=== PATIENT | female | born 1995 | race Caucasian/White ===

== ENCOUNTER 2016-07-29 16:03 | Inpatient (IN) | payer BC ==
--- NOTE | ~2016-07-29 | PA ---
Unit #: [id number] #: [id number] Patient: KIM TOTH [id number] [place] [address] [id number] I MR#: [id number] NAME: KIM TOTH ROOM: P254 Age: 20 Sex: F Admission Date: 07/29/2016 : 1995 Date of Assessment: Attending Physician: Torres Irvin M.D. Admitting Physician: Torres Irvin M.D. Primary Care Physician: Shayy Mueller A.P.R.N. PSYCHIATRIC ASSESSMENT INFORMANTS The patient reliability, fair; chart reliability, good. CHIEF COMPLAINT Suicide attempt by taking an overdose. HISTORY OF PRESENT ILLNESS Ms. Kim Toth is a 20-year-old female, presented at [facility] after she took overdose of pills. The patient wrote a suicide note addressed to her parents as well as to her boyfriend. The patient reported lot of stress from relationship and also from work. The patient works at [employer]. Has a good support system, lives with her parent. Denied any use of drugs or alcohol. The patient reported history of suicide attempt earlier at age 15. Reported suffering from depression since age 12 or 13, but never received any treatment. The patient reported recently started on Prozac, but not much improvement with medication. The patient needed inpatient admission at this time for psychiatric stabilization. PAST PSYCHIATRIC HISTORY Remarkable for history of previous treatment, outpatient; history of previous suicide attempt at age 15 by taking an overdose, but did not require any inpatient treatment. FAMILY HISTORY AND SOCIAL HISTORY Family history is remarkable for history of depression in father, who has been suffering from depression. No history of abuse. No history of any substance abuse. MEDICAL HISTORY Unremarkable for any chronic medical illness. MEDICATION HISTORY Prozac 20 mg daily. ALLERGIES No known drug allergies. SUBSTANCE ABUSE HISTORY None. REVIEW OF SYSTEMS HEENT: Eyes, clear. Ears, nose, mouth, and throat; clear. CARDIOVASCULAR: Unremarkable. Unit #: [id number] #: [id number] Patient: KIM TOTH RESPIRATORY: Unremarkable. GI: Unremarkable. : Unremarkable. SKIN: Unremarkable. LYMPH NODE: Unremarkable. NEUROLOGIC: Unremarkable. ENDOCRINE: Unremarkable. HEMATOLOGIC: Unremarkable. ALLERGIC/IMMUNOLOGIC: Unremarkable. MUSCULOSKELETAL: Muscle strength and tone, no atrophy or abnormal movement. Gait normal. MENTAL STATUS EXAMINATION CONSTITUTIONAL: Measurement of vital signs; temperature 98.5, pulse 94, respirations 20, blood pressure 121/79, height 5 feet 8 inches, weight 140 pounds. GENERAL APPEARANCE: The patient dressed casually. The patient did not show any facial deformity. MUSCULOSKELETAL: Please see above. PSYCHIATRIC EXAMINATION Description of speech; regular rate, normal volume, normal articulation. Description of thought process, goal directed. Description of association, intact. Description of abnormal psychotic thinking; the patient denied any hallucination, delusions, or mood lability. Description of the patient's judgment, concerning everyday activity, poor; social situation, poor. Concerning psychiatric condition, poor. Complete mental status examination; oriented in time, place, and person. Recent and remote memory, fair. Attention span and concentration, fair. Language; able to name object, repeat phrases. Fund of knowledge, aware of current event and past history. Vocabulary, intact. Mood and affect; sad, dysphoric. Insight and judgment, fair to poor. ASSETS AND LIABILITIES Assets; the patient is articulate and able to take care of her ADL. Liability; history of depression, anxiety. ADMITTING DIAGNOSES Psychiatric: Major depressive disorder, recurrent, severe, F33.2; anxiety disorder, not otherwise specified, F40.01. ASSESSMENT AND PLAN 1. Advised inpatient admission at this time. Provide safe, supportive, and structured environment. 2. Ordered labs; CBC, CMP, UA, UDS. If all the labs are done at the [facility], we will not repeat. Also, check for test. 3. Precaution for self-harm. 4. The patient to attend all the program in group therapy, individual therapy, medication management, family therapy. Plan to consider Vistaril 25 mg b.i.d. for anxiety, trazodone 50 mg at bedtime for sleep, and Celexa 20 mg daily for depression. The patient to attend all the programing. If needed, consider further adjustment of medication. DISCHARGE PLAN Plan to stabilize the patient and consider followup in outpatient program. ESTIMATED LENGTH OF STAY Unit #: [id number] #: [id number] Patient: KIM TOTH 5 days. Dictated by... Torres Irvin M.D. ARTHUR/edin TD: 07/30/2016 17:27 JOB #: [id number] PSYCHIATRIC ASSESSMENT Page 1 of 1 X Torres Irvin MD PSYCHIATRIC ASSESSMENT
--- NOTE | ~2016-07-29 | PN ---
Unit #: [id number] #: [id number] Patient: KIM RICK [id number] [facility] [address] [place] [address] [id number] I MR#: [id number] NAME: KIM RICK ROOM: P254 Age: Sex: F Admission Date: 07/29/2016 : 1995 Attending Physician: Torres Irvin M.D. Admitting Physician: Torres Irvin M.D. Primary Care Physician: Shayy LOREDO PROGRESS NOTES DATE 07/31/2016 DISCUSSION Kelsey Rick is a 20-year-old female seen on 07/31/2016. Patient interviewed, chart reviewed, obtained information from nursing staff. Vital signs stable at 98.6, 76, 16, 133/83. The patient withdrawn, isolative, flat, sad dysphoric mood. Patient still is tearful, sad, dysphoric. REVIEW OF SYSTEMS Complete review of systems unremarkable. MENTAL STATUS EXAMINATION General appearance, the patient dressed casually. Attention span and concentration fair. Oriented to place and person. Mood and affect, sad, dysphoric. Speech monotone. Thought process is concrete. Patient denied any thoughts of harming self or others but still having passive SI, withdrawn, isolative. Recent and remote memory poor. Insight and judgement poor. DIAGNOSES Major depressive disorder, recurrent. ASSESSMENT/PLAN Advise to continue with current medication and therapeutic protocol. If needed consider further adjustment of medication. Dictated by... Elliott Almonte/eve TD: 08/01/2016 14:36 JOB #: [id number] Unit #: [id number] #: [id number] Patient: KIM RICK PROGRESS NOTES Page 1 of 1 X Torres Irvin MD X PROGRESS NOTE
--- NOTE | ~2016-07-29 | DS ---
Unit #: [id number] #: [id number] Patient: KIM TOTH [id number] [facility] [address] [place] [address] [id number] I MR#: [id number] NAME: KIM TOTH ROOM: [facility] Age: 20 Sex: F Admission Date: 07/29/2016 : 1995 Discharge Date: 08/01/2016 Attending Physician: Torres Irvin M.D. Primary Care Physician: Shayy Bolanos DISCHARGE SUMMARY REASON FOR ADMISSION Depression. DIAGNOSTIC STUDIES Unremarkable. HOSPITAL COURSE Patient was admitted to the inpatient unit on July 29 and discharged on August 01. The patient was transferred from [facility]. She was admitted with intentional overdose with a suicide attempt. The patient participated in programming and obtained safe behavior. She showed no side effect from medication. The patient was discharged with plan to follow up in outpatient program. DISCHARGE MEDICATIONS 1. Vistaril 25 mg twice daily for anxiety. 2. Desyrel 100 mg bedtime for sleep p.r.n. 3. Remeron 15 mg at bedtime for depression. DISCHARGE DIAGNOSES Psychiatric: 1. Major depressive disorder recurrent severe F33.2 2. Anxiety disorder NOS Secondary diagnosis Deferred. Medical diagnosis: None. DISCHARGE PLAN Patient to follow up in outpatient clinic. social. On discharge patient is pleasant and cooperative. Denied any psychotic symptoms or . Prognosis guarded. Diet and activity as tolerated. Dictated by... Elliott Almonte/anne TD: 08/03/2016 08:02 JOB #: [id number] Unit #: [id number] #: [id number] Patient: KIM TOTH DISCHARGE SUMMARY Page 1 of 1 X Torres Irvin MD X DISCHARGE SUMMARY
--- NOTE | ~2016-07-29 | HP ---
Unit #: [id number] #: [id number] Patient: KIM TOTH [id number] [place] [address] [id number] MR#: [id number] NAME: KIM TOTH ROOM: P254 Age: 20 Sex: F Admission Date: 07/29/2016 : 1995 Attending Physician: Torres Irvin M.D. Admitting Physician: Torres Irvin M.D. Primary Care Physician: Shayy Bolanos HISTORY AND PHYSICAL HISTORY OF PRESENT ILLNESS The patient is a 20 year old female admitted to [address] [place] [address] on 07/29/2016 for suicidal ideation. PAST MEDICAL HISTORY Patient denies. PAST SURGICAL HISTORY 1. Oral surgery. 2. Tonsils and adenoids. ALLERGIES Penicillin and Suprax. SOCIAL HISTORY Patient works at [employer]. She lives with her parents. She denies alcohol, tobacco or drug use. She is currently a college student. FAMILY HISTORY Noncontributory. REVIEW OF SYSTEMS CONSTITUTIONAL: No fever or chills. HEENT: Denies any sore throat, ear pain or runny nose. CARDIOVASCULAR: Denies chest pain, irregular heart rhythm or palpitations. CHEST: Denies shortness of breath or cough. No hemoptysis. GASTROINTESTINAL: Denies nausea, vomiting, diarrhea or chronic constipation. ENDOCRINE: Denies history of increased thirst or urination. No recent significant weight loss or gain. GENITOURINARY: Denies dysuria, frequency, or hematuria. SKIN: Denies any rashes. HEMATOLOGIC: Denies history of increased bleeding or bruising. MUSCULOSKELETAL: Denies any hot, swollen joints. No generalized muscle pain. NEUROLOGIC: Denies problems with vision or speech. No frequent, severe headaches. No numbness, tingling or weakness in any extremities. Denies loss of bladder or bowel control. CURRENT MEDICATIONS 1. Prozac. 2. Ambien. 3. [place]. Unit #: [id number] #: [id number] Patient: KIM TOTH 4. Promethazine. PHYSICAL EXAMINATION GENERAL: She is awake, alert, oriented, in no acute distress. VITAL SIGNS: Temperature 98.3, heart rate 92, respirations 16, blood pressure 132/100. HEIGHT: 5 feet 8. WEIGHT: 140 pounds. SKIN: Warm and dry without rash or lesion. HEENT: Normocephalic. TMs not viewed. Oral and nasal passages clear. Conjunctivae clear. PERRLA. EOMs intact. NECK: Supple without lymphadenopathy or thyromegaly. HEART: Regular rate and rhythm without murmur. LUNGS: Clear. ABDOMEN: Soft, nontender. : Not done. EXTREMITIES: No evidence of cyanosis, clubbing or edema. Moves all without focal deficit. NEUROLOGICAL: Grossly within normal limits. Cranial Nerves: II: Visual nix are intact. III, IV AND : Extraocular movements are intact. Pupils are equal, round and reactive to light. V: Facial sensation is grossly normal. VII: Facial movements and expression are normal. VIII: Auditory acuity grossly intact. IX, X: Uvula is midline. Phonation is normal. XI: Patient shrugs shoulders and turns head normally. XII: Tongue protrudes in the midline. Sensory and Motor Function: Sensory and motor sensation is grossly normal. Motor: moves all extremities well. Coordination: Gait is normal. Deep Tendon Reflexes: Intact. IMPRESSION Psychiatric admission. RECOMMENDATIONS PSYCHIATRIC: Per psychiatrist. MEDICAL: No contraindications to participate in facility's activities. MEDICAL PROGNOSIS Good. MEDICAL CONDITION Stable. Dictated by... Vivek Cronin/israel TD: 07/30/2016 16:38 JOB #: [id number] Unit #: [id number] #: [id number] Patient: KIM TOTH HISTORY AND PHYSICAL Page 1 of 1 X TAMMY TURNER APRN HISTORY AND PHYSICAL
--- NOTE | ~2016-07-29 | DS ---
Unit #: [id number] #: [id number] Patient: KIM TOTH [id number] [facility] [address] [place] [address] [id number] I MR#: [id number] NAME: KIM TOTH ROOM: [facility] Age: 20 Sex: F Admission Date: 07/29/2016 : 1995 Discharge Date: 08/01/2016 Attending Physician: Torres Irvin M.D. Primary Care Physician: Shayy Bolanos DISCHARGE SUMMARY REASON FOR ADMISSION Depression. DIAGNOSTIC STUDIES LABORATORY RESULTS: None. HOSPITAL COURSE The patient was admitted to outpatient program. The patient was initially admitted on inpatient unit, stabilized and stepped down to outpatient program. The patient was treated with medication management, psychotherapy, responded well with the above modalities of treatment. The patient was subsequently discharged with a plan to follow up in outpatient program. DISCHARGE MEDICATIONS Vistaril 25 mg t.i.d. for anxiety, trazodone 200 mg at bedtime for sleep, Wellbutrin XL 150 mg in the morning for depression, melatonin 6 mg at bedtime for sleep. DISCHARGE DIAGNOSES Psychiatric: Major depressive disorder, recurrent, severe, F33.2; anxiety disorder, not otherwise specified, F40.01. Secondary diagnosis: Deferred. Medical diagnosis: None. Stressors: Psychosocial stressor, job problem, relationship problem. DISCHARGE INSTRUCTIONS The patient to follow up in outpatient clinic as per child welfare social worker. CONDITION ON DISCHARGE The patient was pleasant and cooperative. Denied any psychotic symptom or any suicidal ideation. PROGNOSIS Guarded. DIET AND ACTIVITY As tolerated. Unit #: [id number] #: [id number] Patient: KIM TOTH Dictated by... Elliott Almonte/edin TD: 09/04/2016 15:13 JOB #: [id number] DISCHARGE SUMMARY Page 1 of 1 X Torres Irvin MD X DISCHARGE SUMMARY
[2016-07-30 11:23] LABS: URINE APPEARANCE CLEAR; URINE BILIRUBIN NEG (NEG); URINE BLOOD TRACE (NEG); URINE COLOR YELLOW; URINE GLUCOSE NEG (NEG); URINE KETONE 2+ (NEG); URINE LEUKOCYTE ESTERASE NEG (NEG); URINE NITRATE NEG (NEG); URINE PH 5.5 (5-8); URINE PROTEIN 1+ (NEG); URINE SPECIFIC GRAVITY 1.017 (1.003-1.035); URINE UROBILINOGEN 0.2 MG/DL (NEG)
[2016-07-30 11:26] LABS: URBCS1 AUWI 0-2 /[HPF] (0-2); URINE BACTERIA AUWI 1+ (NEGATIVE); URINE SQUAMOUS EPITHELIAL CELL OCC /[HPF]
[2016-07-30 12:08] LABS: AMPHETAMINE NEG (NEG); BARBITURATES NEG (NEG); BENZODIAZEPINES NEG (NEG); COCAINE NEG (NEG); MARIJUANA NEG (NEG); OPIATES NEG (NEG); TRICYCLIC ANTIDEPRESSANTS NEG (NEG); U METHADONE NEG (NEG)
== END 2016-08-01 14:00 | disposition home or self-care (01) | DRG 885 ==
LOC: P2L 16:03
PROVIDERS: Psychiatry & Neurology Psychiatry
DX: F33.2 Major depressive disorder, recurrent severe without psychotic features (principal); R45.851 Suicidal ideations; F41.9 Anxiety disorder, unspecified; Z88.0 Allergy status to penicillin
CPT/HCPCS: 80307; 81003